=== PATIENT | female | born 1970 | race Hispanic/Latino ===

== ENCOUNTER 2017-08-07 14:35 | Outpatient (CLI) | payer BC | END 2017-08-07 14:36 | disposition home or self-care (01) | LOC: BICRAD 14:35 | PROVIDERS: ATTEND Family Medicine | DX: M54.5 Low back pain (principal); M47.896 Other spondylosis, lumbar region; R10.30 Lower abdominal pain, unspecified | CPT/HCPCS: 72100 ==

== ENCOUNTER 2017-08-10 14:04 | Outpatient (CLI) | payer BC ==
--- NOTE | 2017-08-10 16:06 | ULT ---
PELVIC ULTRASOUND 08/10/17 HISTORY: Pelvic pain. FINDINGS: Multiple transabdominal and endovaginal sonographic images of the pelvis are obtained. The uterus dem onstrates slight heterogeneity but otherwise normal sonographic appearance and measures 8.6 cm x 5.8 cm x 3.9 cm. The endometrial stripe measures 0.8 cm in thickness which is within normal limits in a n ormal menstruating female patient but would be abnormal in a postmenopausal female patient. No fluid or fluid collection is seen in the endometrial canal. The left ovary measures 3.8 cm x 2.7 cm x 2.9 cm. There is a complex cystic lesion with several inter nal septations and echogenic material seen within the left ovary. This complex cystic lesion measures 2.9 cm x 2.8 cm x 2.3 cm. There is a tubular anechoic structure adjacent to the left ovary which may represent associated component of the complex cystic lesion although dilatation of a portion of the left fallopian tube cannot be entirely excluded. However, the fallopian tubes are not adequately asse ssed on this exam. The right ovary demonstrates a normal sonographic appearance and measures 2.3 cm x 1.6 cm x 1.5 cm. D oppler evaluation of each ovary suggests arterial flow in each ovary. No free fluid is seen in the cul-e-sac. IMPRESSION: Complex cystic lesion left ovary. Differential considerations would include hemorrhagic cyst or cysti c neoplasm, whether benign or malignant. [employer] consultation is suggested for further evaluation. POS: OFF
== END 2017-08-10 14:05 | disposition home or self-care (01) ==
LOC: ULT 14:04
PROVIDERS: ATTEND Family Medicine
DX: Z00.00 Encounter for general adult medical examination without abnormal findings (principal); R10.2 Pelvic and perineal pain; N83.202 Unspecified ovarian cyst, left side; M54.5 Low back pain; M47.896 Other spondylosis, lumbar region
CPT/HCPCS: 76856

== ENCOUNTER 2018-03-08 15:51 | Outpatient (CLI) | payer BC | END 2018-03-08 15:52 | disposition home or self-care (01) | LOC: BICMAMMO 15:51 | PROVIDERS: ATTEND Family Medicine | DX: Z12.31 Encounter for screening mammogram for malignant neoplasm of breast (principal) | CPT/HCPCS: 77063; 77067 ==

== ENCOUNTER 2018-11-09 15:55 | Outpatient (CLI) | payer BC ==
--- NOTE | 2018-11-09 16:28 | RAD ---
CHEST TWO VIEW 11/09/18 HISTORY: Dyspnea. COMPARISON: Radiograph from 2006. FINDINGS: The lungs are clear. No pneumothorax or effusion. The cardiac silhouette and mediastinal contours are within normal limits. IMPRESSION: No acute intrathoracic abnormality. POS: TPC
== END 2018-11-09 15:56 | disposition home or self-care (01) ==
LOC: RAD 15:55
PROVIDERS: ATTEND Internal Medicine Pulmonary Disease
DX: R06.00 Dyspnea, unspecified (principal)
CPT/HCPCS: 71046

== ENCOUNTER 2021-04-06 14:56 | Outpatient (CLI) | payer BC | END 2021-04-06 14:57 | disposition home or self-care (01) | LOC: BICMAMMO 14:56 | PROVIDERS: ATTEND Nurse Practitioner Family | DX: Z12.31 Encounter for screening mammogram for malignant neoplasm of breast (principal) | CPT/HCPCS: 77063; 77067 ==

== ENCOUNTER 2023-03-06 09:10 | Outpatient (CLI) | payer BC ==
[~2023-03-06 09:10] MED LIST: Iopamidol 370 76% 100 ML VIAL ONE
== END 2023-03-06 09:11 | disposition home or self-care (01) ==
LOC: CT 09:10
PROVIDERS: ATTEND Physician Assistant Medical
DX: R10.32 Left lower quadrant pain (principal)
CPT/HCPCS: 74177; Q9967

== ENCOUNTER 2024-02-20 19:26 | Emergency (ER) | payer BC ==
[2024-02-20 20:25] LABS: Hematocrit 36.9 % (36.0-47.0); Hemoglobin 13.2 g/dL (12.0-16.0); Mean Corpuscular HGB CONC 35.8 g/dL (32.0-36.0); Mean Corpuscular Hemoglobin 30.9 pg (27.0-31.0); Mean Corpuscular Volume 86.4 fL (78.0-98.0); Mean Platelet Volume 10.5 fL (7.4-10.4); Platelet Count 256 10x3/uL (130-400); RBC Distribution Width 11.7 % (11.5-14.5); Red Blood Cell (RBC) Count 4.27 mill/uL (4.20-5.40)
[2024-02-20 20:41] LABS: Troponin I Less than 0.010 ng/mL (< 0.028)
[2024-02-20 20:42] LABS: ALT (SGPT) 17 U/L (8-55); AST (SGOT) 21 U/L (5-34); Albumin 3.6 g/dL (3.5-5.0); Alkaline Phosphatase 84 U/L (40-110); Anion Gap 13 mmol/L (10-20); BUN (Urea Nitrogen) 15 mg/dL (9.8-20.1); Bilirubin, Total 0.2 mg/dL (0.2-1.2); Calc. Creatinine Clearance 0 mL/min (70-130); Calcium 8.7 mg/dL (7.8-10.44); Carbon Dioxide 23 mmol/L (22-29); Chloride 109 mmol/L (98-107); Estimated GFR 103; Glucose 86 mg/dL (70-105); Potassium 3.6 mmol/L (3.5-5.1); Protein, Total 6.6 g/dL (6.0-8.3); Sodium 141 mmol/L (136-145)
[2024-02-20 20:45] LABS: Eosinophils 7 % (0-10); Large Platelets 5.1 % (0-5); Lymphocytes 40 % (21-51); Monocytes 5 % (0-10); Neutrophil 46 % (42-75); Ovalocytes SLIGHT = 2-5 cells HPF (0-1); Platelet Adequacy Comment Platelets Normal; Polychromasia SLIGHT = 2-3 cells HPF (0-2)
[2024-02-20] MEDS ORDERED: Aspirin Chewable 81 MG TAB ONE (21:42)
[2024-02-20] MEDS ORDERED: Albuterol 200 PUFF (6.7GM INHALER) ONE (21:45)
== END 2024-02-20 22:15 | disposition home or self-care (01) ==
LOC: ERS 19:26
DX: U07.1 COVID-19 (principal); M94.0 Chondrocostal junction syndrome [Tietze]
CPT/HCPCS: 36415; 71045; 80053; 84484; 85025; 93005